=== PATIENT | male | born 1980 | race Hispanic/Latino ===

== ENCOUNTER → 2025-05-24 | Outpatient (REF) | payer OTHER | LOC: WCC 16:17 | PROVIDERS: ATTEND Internal Medicine Infectious Disease | DX: S81.802D Unspecified open wound, left lower leg, subsequent encounter (principal) ==

== ENCOUNTER → 2025-05-31 | Outpatient (REF) | payer OTHER | LOC: WCC 14:30 | PROVIDERS: ATTEND Internal Medicine Infectious Disease | DX: S81.802D Unspecified open wound, left lower leg, subsequent encounter (principal) ==

== ENCOUNTER → 2025-06-07 | Outpatient (REF) | payer OTHER | LOC: WCC 14:44 | PROVIDERS: ATTEND Internal Medicine Infectious Disease | DX: S81.802D Unspecified open wound, left lower leg, subsequent encounter (principal) ==

== ENCOUNTER → 2025-06-21 | Outpatient (REF) | payer OTHER | LOC: WCC 14:00 | PROVIDERS: ATTEND Internal Medicine Infectious Disease | DX: S81.802D Unspecified open wound, left lower leg, subsequent encounter (principal) ==